=== PATIENT | female | born 1995 | race American Indian/Alaskan Native ===

== ENCOUNTER 2020-10-17 22:50 | Emergency (ER) | payer OTHER ==
[2020-10-18 04:42] VITALS: BP 114/74
[2020-10-18] MEDS ORDERED: PROCHLORPERAZINE EDISYLATE 10 MG/2 ML VIAL IV ONE (05:19)
[2020-10-18] MEDS ORDERED: SODIUM CHLORIDE 0.9% 1000 ML 1,000 ML IV ONE (05:19)
[2020-10-18] MEDS ORDERED: FAMOTIDINE 20 MG/2 ML INJ IV ONE (05:19)
[2020-10-18 05:50] LABS: Basophils # (Auto) 0.2 K/mm3 (0.0-0.1); Eosinophils # (Auto) 0.1 K/mm3 (0.0-0.4); Eosinophils % (Auto) 0.6 % (0.0-4.3); Monocytes # (Auto) 0.5 K/mm3 (0.0-0.8); Monocytes % (Auto) 5.1 % (0.0-7.3)
[2020-10-18 05:55] LABS: Basophils % (Auto) 0.3 % (0.0-1.8); Hematocrit 38.1 % (30.3-42.9); Hemoglobin 13.6 gm/dl (10.1-14.3); Lymphocytes # (Auto) 1.4 K/mm3 (1.2-5.4); Mean Corpuscular HGB Conc 36 % (30-34); Mean Corpuscular Volume 93 fl (79-97); Platelet Count 412 K/mm3 (140-440); Red Blood Count 4.12 M/mm3 (3.65-5.03)
--- NOTE | 2020-10-18 06:32 | Emergency Department Report ---
<FRANCO KAUFMAN - Last Filed: 10/18/20 07:01> ED N/V/D HPI - General Chief complaint: Weakness Stated complaint: WEAKNESS/EMESIS Source: patient, EMS Mode of arrival: Wheelchair Limitations: No Limitations - History of Present Illness Initial comments: Patient is a nulliparous 25-year-old -[place] female with past medical history of eating disorder and personality disorder who presents to the ED with complaint of acute onset persistent intractable nausea and vomiting and abdominal pain intermittently for the last 2 weeks with worsening generalized weakness and lack of appetite. Patient states that she has not been able to keep anything down especially in the last 2 days. Patient states that she is late on her menstrual cycle and suspect that she may be although she has not had any home tests performed. Patient denies fever, chills, diarrhea, chest pain, shortness of breath, dysuria, urinary frequency and urgency, vaginal bleeding, vaginal discharge, cough, nasal and sinus congestion, sore throat, headache, syncope or dizziness. MD complaint: nausea, vomiting, abdominal pain, other (Generalized weakness) -: Sudden, week(s) (2) Description of Vomiting: food contents, watery Associated Abdominal Pain: Yes (Diffuse) Location: diffuse Radiation: none Severity: moderate Pain Scale: 6 Quality: cramping, aching, sharp Consistency: intermittent Improves with: none Worsens with: eating, vomiting Context: other (Late on her menstrual cycle; suspects ) Associated Symptoms: denies other symptoms, myalgias, loss of appetite, malaise, nausea/vomiting, weakness. denies: chest pain, cough, diaphoresis, fever/chills, headaches, rash, dysuria, shortness of breath, syncope, other - Related Data Previous Rx's Medication Instructions Recorded Last Taken Type Metoclopramide [Reglan] 10 mg PO Q12H PRN #12 tab 10/18/[address] [place]/M-Cryst 100 mg PO Q12HR #14 capsule 10/18/20 Unknown Rx [Macrobid CAP] 21/Iron Fu/Folic Acid 1 each PO DAILY #30 tablet 10/18/20 Unknown Rx [ Complete Caplet] Allergies Allergy/AdvReac Type Severity Reaction Status Date / Time creatine Allergy Anaphylaxis Uncoded 10/18/20 01:11 ED Review of Systems Constitutional: malaise, weakness. denies: chills, fever Eyes: denies: eye pain, eye discharge, vision change ENT: denies: ear pain, throat pain Respiratory: denies: cough, shortness of breath, wheezing Cardiovascular: denies: chest pain, palpitations Endocrine: no symptoms reported Gastrointestinal: abdominal pain, nausea, vomiting. denies: diarrhea Genitourinary: denies: urgency, dysuria, discharge Musculoskeletal: denies: back pain, joint swelling, arthralgia Skin: denies: rash, lesions Neurological: denies: headache, weakness, paresthesias Psychiatric: denies: anxiety, depression Hematological/Lymphatic: denies: easy bleeding, easy bruising ED Past Medical Hx - Past Medical History Previous Medical History?: Yes Hx Psychiatric Treatment: Yes (borderline personality disorder) Additional medical history: IBS, eating disorder - Surgical History Past Surgical History?: No - Social History Smoking Status: Never Smoker Substance Use Type: None - Medications Home Medications: Home Medications Medication Instructions Recorded Confirmed Last Taken Type Metoclopramide [Reglan] 10 mg PO Q12H PRN #12 tab 10/18/[address] [place]/M-Cryst 100 mg PO Q12HR #14 capsule 10/18/20 Unknown Rx [Macrobid CAP] 21/Iron Fu/Folic Acid 1 each PO DAILY #30 tablet 10/18/20 Unknown Rx [ Complete Caplet] ED Physical Exam - General Limitations: No Limitations General appearance: alert, in no apparent distress - Head Head exam: Present: atraumatic, normocephalic, normal inspection - Eye Eye exam: Present: normal appearance, PERRL, EOMI Pupils: Present: normal accommodation - ENT ENT exam: Present: normal exam, normal orophraynx, mucous membranes moist, TM's normal bilaterally, normal external ear exam - Neck Neck exam: Present: normal inspection, full ROM - Respiratory Respiratory exam: Present: normal lung sounds bilaterally. Absent: respiratory distress, wheezes, rales, rhonchi, chest wall tenderness, accessory muscle use, decreased breath sounds, prolonged expiratory - Cardiovascular Cardiovascular Exam: Present: regular rate, normal rhythm, normal heart sounds. Absent: systolic murmur, diastolic murmur, rubs, gallop - GI/Abdominal GI/Abdominal exam: Present: soft, tenderness (Palpable mild diffuse abdominal tenderness), normal bowel sounds. Absent: guarding, rebound, hyperactive bowel sounds, hypoactive bowel sounds, organomegaly - Extremities Exam Extremities exam: Present: normal inspection, full ROM, normal capillary refill - Back Exam Back exam: Present: normal inspection, full ROM. Absent: tenderness, CVA tenderness (R), CVA tenderness (L), muscle spasm, paraspinal tenderness - Neurological Exam Neurological exam: Present: alert, oriented X3, CN II-XII intact, normal gait, reflexes normal - Psychiatric Psychiatric exam: Present: normal affect, normal mood - Skin Skin exam: Present: warm, dry, intact, normal color. Absent: rash ED Medical Decision Making - Lab Data Result diagrams: 10/18/20 05:36 10/18/20 Unknown - Medical Decision Making This is a nulliparous 25-year-old -[place] female with past medical history of eating disorder and personality disorder who presents to the ED with complaint of acute onset persistent intractable nausea and vomiting and abdominal pain intermittently for the last 2 weeks with worsening generalized weakness and lack of appetite. Patient states that she has not been able to keep anything down especially in the last 2 days. Patient states that she is late on her menstrual cycle and suspect that she may be although she has not had any home tests performed. In the ED, patient is alert and oriented x3 and is not in any distress. Labs were drawn and patient was treated for nausea and vomiting with antiemetics, also given antacids in the ED. Patient also received normal saline 1 L IV bolus x1. Patient had a PO challange and able to tolerate with no vomiting noticed. Patient was discharged home and advised to follow-up with her primary care physician for further evaluation in 2 to 3 days. Patient is advised return to the ED immediately if symptoms get worse. - Differential Diagnosis ; UTI; dehydration; GERD; gastritis; gastroenteritis; ovarian cyst ED Disposition Clinical Impression: Nausea and vomiting in , Acute urinary tract infection, Pelvic pain during , Positive blood test GERD (gastroesophageal reflux disease) Qualifiers: Esophagitis presence: esophagitis presence not specified Qualified Code(s): K21.9 - Gastro-esophageal reflux disease without esophagitis Disposition: - TO HOME OR SELFCARE Is pt being admited?: No Does the pt Need Aspirin: No Condition: Stable Instructions: Nausea and Vomiting, Adult, [id number], Care Additional Instructions: Follow-up with a [facility] doctor in 3-5 days or if symptoms worsen and continue return to emergency room as soon as possible. Prescriptions: Nitrofurantoin [place]/M-Cryst [Macrobid CAP] 100 mg PO Q12HR #14 capsule 21/Iron Fu/Folic Acid [ Complete Caplet] 1 each PO DAILY #30 tablet Metoclopramide [Reglan] 10 mg PO Q12H PRN #12 tab PRN Reason: Nausea Referrals: PRIMARY CARE, [Primary Care Provider] - 3-5 Days [facility] [Provider Group] - 3-5 Days [facility] [Provider Group] - 3-5 Days Forms: Work/School Release Form(ED) Time of Disposition: 07:01 <MORENITA SMITH - Last Filed: 10/18/20 08:22> ED Review of Systems ROS: Stated complaint: WEAKNESS/EMESIS Other details as noted in HPI ED Course Vital Signs 10/18/20 01:02 Temperature 98.0 F Pulse Rate 90 Respiratory 18 Rate Blood Pressure 114/74 O2 Sat by Pulse 100 Oximetry - Reevaluation(s) Reevaluation #1: 10/18/20 07:25 Patient signed out to me by Franco Kaufman for pending test results. Patient has a positive test. I will order a ultrasound OB. Upon exam, currently does not have any abdominal tenderness but stated it is more in the pelvic area that has pressure intermittently. Patient currently denies any nausea or vomiting since treatment in the ER. Patient is stable with no acute signs of distress at this time. ED Medical Decision Making - Lab Data Result diagrams: 10/18/20 05:36 10/18/20 Unknown Lab Results 10/18/20 10/18/20 10/18/20 Range/Units 05:36 Unknown Unknown WBC 9.5 (4.5-11.0) K/mm3 RBC 4.12 (3.65-5.03) M/mm3 Hgb 13.6 (10.1-14.3) gm/dl Hct 38.1 (30.3-42.9) % MCV 93 (79-97) fl MCH 33 H (28-32) pg MCHC 36 H (30-34) % RDW 13.0 L (13.2-15.2) % Plt Count 412 (140-440) K/mm3 Lymph % (Auto) 15.0 (13.4-35.0) % [place] % (Auto) 5.1 (0.0-7.3) % Eos % (Auto) 0.6 (0.0-4.3) % Baso % (Auto) 0.3 (0.0-1.8) % Lymph # (Auto) 1.4 (1.2-5.4) K/mm3 [place] # (Auto) 0.5 (0.0-0.8) K/mm3 Eos # (Auto) 0.1 (0.0-0.4) K/mm3 Baso # (Auto) 0.2 H (0.0-0.1) K/mm3 Seg Neutrophils % 81.3 H (40.0-70.0) % Seg Neutrophils # 7.6 (1.8-7.7) K/mm3 Sodium 135 L (137-145) mmol/L Potassium 3.9 (3.6-5.0) mmol/L Chloride 100.1 (98-107) mmol/L Carbon Dioxide 18 L (22-30) mmol/L Anion Gap 21 mmol/L BUN 12 (7-17) mg/dL Creatinine 0.4 L (0.6-1.2) mg/dL Estimated GFR > 60 ml/min BUN/Creatinine Ratio 30 % Glucose 71 (65-100) mg/dL Calcium 8.6 (8.4-10.2) mg/dL Total Bilirubin 0.60 (0.1-1.2) mg/dL AST 15 (5-40) units/L ALT 6 L (7-56) units/L Alkaline Phosphatase 55 (35-129) units/L Total Protein 6.5 (6.3-8.2) g/dL Albumin 4.3 (3.9-5) g/dL Albumin/Globulin Ratio 2.0 % HCG, Quant (0-4) mIU/mL Urine Color Yellow (Yellow) Urine Turbidity Slightly-cloudy (Clear) Urine pH 6.0 (5.0-7.0) Ur Specific [place] 1.032 H (1.003-1.030) Urine Protein 100 mg/dl (Negative) mg/dL Urine Glucose (UA) 50 (Negative) mg/dL Urine Ketones 80 (Negative) mg/dL Urine Blood Neg (Negative) Urine Nitrite Neg (Negative) Urine Bilirubin Neg (Negative) Urine Urobilinogen < 2.0 (<2.0) mg/dL Ur Leukocyte Esterase Tr (Negative) Urine WBC (Auto) 18.0 H (0.0-6.0) /HPF Urine RBC (Auto) 1.0 (0.0-6.0) /HPF U Epithel Cells (Auto) 4.0 (0-13.0) /HPF Urine Bacteria (Auto) 1+ (Negative) /HPF Urine Mucus 3+ /HPF 10/18/20 Range/Units Unknown WBC (4.5-11.0) K/mm3 RBC (3.65-5.03) M/mm3 Hgb (10.1-14.3) gm/dl Hct (30.3-42.9) % MCV (79-97) fl MCH (28-32) pg MCHC (30-34) % RDW (13.2-15.2) % Plt Count (140-440) K/mm3 Lymph % (Auto) (13.4-35.0) % [place] % (Auto) (0.0-7.3) % Eos % (Auto) (0.0-4.3) % Baso % (Auto) (0.0-1.8) % Lymph # (Auto) (1.2-5.4) K/mm3 [place] # (Auto) (0.0-0.8) K/mm3 Eos # (Auto) (0.0-0.4) K/mm3 Baso # (Auto) (0.0-0.1) K/mm3 Seg Neutrophils % (40.0-70.0) % Seg Neutrophils # (1.8-7.7) K/mm3 Sodium (137-145) mmol/L Potassium (3.6-5.0) mmol/L Chloride (98-107) mmol/L Carbon Dioxide (22-30) mmol/L Anion Gap mmol/L BUN (7-17) mg/dL Creatinine (0.6-1.2) mg/dL Estimated GFR ml/min BUN/Creatinine Ratio % Glucose (65-100) mg/dL Calcium (8.4-10.2) mg/dL Total Bilirubin (0.1-1.2) mg/dL AST (5-40) units/L ALT (7-56) units/L Alkaline Phosphatase (35-129) units/L Total Protein (6.3-8.2) g/dL Albumin (3.9-5) g/dL Albumin/Globulin Ratio % HCG, Quant 09535 H (0-4) mIU/mL Urine Color (Yellow) Urine Turbidity (Clear) Urine pH (5.0-7.0) Ur Specific [place] (1.003-1.030) Urine Protein (Negative) mg/dL Urine Glucose (UA) (Negative) mg/dL Urine Ketones (Negative) mg/dL Urine Blood (Negative) Urine Nitrite (Negative) Urine Bilirubin (Negative) Urine Urobilinogen (<2.0) mg/dL Ur Leukocyte Esterase (Negative) Urine WBC (Auto) (0.0-6.0) /HPF Urine RBC (Auto) (0.0-6.0) /HPF U Epithel Cells (Auto) (0-13.0) /HPF Urine Bacteria (Auto) (Negative) /HPF Urine Mucus /HPF - Radiology Data [facility] [address] [place] [address] Ultrasound Report Signed Patient: PAM UNDERWOOD MR#: [id number] : 1995 Acct:[id number] Age/Sex: 24 / F ADM Date: 10/17/20 Loc: ED A ttending Dr: Ordering Physician: MORENITA SMITH NP Date of Service: 10/18/20 Procedure(s): US OB <= 14 weeks fetus Accession Number(s): [id number] cc: MORENITA SMITH NP [facility]IME[facility] OBSTETRIC ULTRASOUND HISTORY: Pelvic pain, hyperemesis for 2 weeks, whole body aches COMPARISON: None. TECHNIQUE: Routine transabdominal OB ultrasound performed. FINDINGS: Uterus: Normal size measuring 7.8 x 5.5 x 5.2 cm. Gestational Sac: Well-defined oval shape and intrauterine in location. Yolk Sac: Normal in appearance. Fetus/Embryo: [place]-rump length of 0.9 cm, corresponding to an estimated gestational age of 6 weeks 6 days. Embryonic/ anatomy is too small for evaluation. Embryonic/ cardiac activity: 144bpm Placenta: Too small for evaluation. Amniotic fluid volume: Subjectively appropriate for gestational age. Ovaries: The right ovary is normal in size and appearance with normal blood flow, measuring 2.2 x 1.7 x 1.6 cm. The left ovary is normal in size and appearance with normal blood flow, measuring 2.7 x 1.4 x 1.2 cm. Additional findings: A moderate subchorionic hemorrhage is identified along the superior border of the gestational sac measuring 2.4 x 1.0 cm on sagittal imaging. IMPRESSION Viable single intrauterine as described. Moderate subchorionic hemorrhage. Signer Name: Tevin Scruggs Jr, MD Signed: 10/18/2020 8:10 AM Workstation Name: [id number] Transcribed By: GRETA Hebert ictated By: TEIVN SCRUGGS JR, MD Electronically Authenticated By: TEVIN SCRUGGS JR, MD Signed Date/Time: 10/18/20809 DD/ 7 TD/TT: - Medical Decision Making This is a 24-year-old female that was originally seen by Franco Kaufman and signed out to me for pending results. Patient is . I reviewed the labs and ultrasound and patient is notified of the results with no questions noted by the patient. Patient did have a p.o. challenge which patient tolerated with no nausea vomiting. I will discharge patient with Macrobid, Reglan and vitamins. Patient denied any having any vaginal bleeding. Patient was instructed to follow-up with a [facility] doctor in 3-5 days or if symptoms worsen and continue return to emergency room as soon as possible. At time of discharge, the patient does not seem toxic or ill in appearance. No acute signs of distress noted. Patient agrees to discharge treatment plan of care. No further questions noted by the patient. Critical care attestation.: If time is entered above; I have spent that time in minutes in the direct care of this critically ill patient, excluding procedure time. ED Disposition Time of Disposition: 08:22
[2020-10-18 06:48] LABS: Alanine Aminotransferase 6 units/L (7-56); Albumin 4.3 g/dL (3.9-5); Bacteria,Urine 1+ /HPF (Negative); Bilirubin,Urine NEG (Negative); Blood Urea Nitrogen 12 mg/dL (7-17); Blood,Urine NEG (Negative); Calcium 8.6 mg/dL (8.4-10.2); Color,Urine Yellow (Yellow); Hemolysis Index 22; Mucus,Urine 3+ /HPF; Urobilinogen,Urine < 2.0 mg/dL (<2.0)
[2020-10-18 06:55] LABS: BUN/Creatinine Ratio 30
--- NOTE | 2020-10-18 08:15 | Ultrasound Report ---
FIRSTTRIME[facility] OBSTETRIC ULTRASOUND HISTORY: Pelvic pain, hyperemesis for 2 weeks, whole body aches COMPARISON: None. TECHNIQUE: Routine transabdominal OB ultrasound performed. FINDINGS: Uterus: Normal size measuring 7.8 x 5.5 x 5.2 cm. Gestational Sac: Well-defined oval shape and intrauterine in location. Yolk Sac: Normal in appearance. Fetus/Embryo: [place]-rump length of 0.9 cm, corresponding to an estimated gestational age of 6 weeks 6 days. Embryonic/ anatomy is too small for evaluation. Embryonic/ cardiac activity: 144bpm Placenta: Too small for evaluation. Amniotic fluid volume: Subjectively appropriate for gestational age. Ovaries: The right ovary is normal in size and appearance with normal blood flow, measuring 2.2 x 1. 7 x 1.6 cm. The left ovary is normal in size and appearance with normal blood flow, measuring 2.7 x 1.4 x 1.2 cm. Additional findings: A moderate subchorionic hemorrhage is identified along the superior border of th e gestational sac measuring 2.4 x 1.0 cm on sagittal imaging. IMPRESSION Viable single intrauterine as described. Moderate subchorionic hemorrhage. Signer Name: Tevin Scruggs Jr, MD Signed: 10/18/2020 8:10 AM Workstation Name: [id number]
== END 2020-10-18 08:45 | disposition home or self-care (01) ==
LOC: ED 22:50
DX: O21.9 Vomiting of pregnancy, unspecified (principal); O23.41 Unspecified infection of urinary tract in pregnancy, first trimester; O26.891 Other specified pregnancy related conditions, first trimester; K21.9 Gastro-esophageal reflux disease without esophagitis; Z79.899 Other long term (current) drug therapy; Z3A.01 Less than 8 weeks gestation of pregnancy
CPT/HCPCS: 36415; 76801; 80053; 81001; 84702; 85025; 87086; 96361; 96374; 96375; 99284; J0780; J7030

== ENCOUNTER 2021-05-23 11:35 | Emergency (ER) | payer OTHER ==
[2021-05-23 12:43] VITALS: BP 102/79
--- NOTE | 2021-05-23 14:01 | Emergency Department Report ---
ED Female HPI - General Chief complaint: Abdominal Pain Stated complaint: N/V BODYACHES Source: patient Mode of arrival: Ambulatory Limitations: No Limitations - History of Present Illness Initial comments: 25-year-old -[place] female who has a history of schizophrenia and anorexia nervosa. Patient states she is currently not being treated for those 2 diagnoses. Patient at this time denies any thoughts of harming herself or harming anyone else. Patient comes in complaining of urinary frequency and urgency and pelvic discomfort. Patient denies any vaginal bleeding. Her last menstrual period was 04/29/2021. She states that she had a urinary tract infection about a month ago and only missed 2 pills. Patient states that she is full care. She has an allergy to creatine, Wellbutrin and Risperdal. MD Complaint: pelvic pain Onset/Timin -: days(s) Location: suprapubic Radiation: non-radiating Severity scale (0 -10): 3 Quality: sharp Consistency: now resolved Improves with: none Worsens with: none Are you Now?: No Last Menstrual Period: 04/29/21 EDC: 02/03/22 Associated Symptoms: nausea/vomiting, dysuria. denies: fever/chills - Related Data Previous Rx's Medication Instructions Recorded Last Taken Type 21/Iron Fu/Folic Acid 1 each PO DAILY #30 tablet 10/18/20 Unknown Rx [ Complete Caplet] Metoclopramide [Reglan TAB] 10 mg PO Q12H PRN #12 tab 05/23/21 Unknown Rx Nitrofurantoin [place]/M-Cryst 100 mg PO Q12HR #14 capsule 05/23/21 Unknown Rx [Macrobid CAP] Allergies Allergy/AdvReac Type Severity Reaction Status Date / Time creatine Allergy Anaphylaxis Uncoded 05/23/21 12:44 ED Review of Systems ROS: Stated complaint: N/V BODYACHES Other details as noted in HPI Comment: All other systems reviewed and negative ED Past Medical Hx - Past Medical History Hx Psychiatric Treatment: Yes (borderline personality disorder) Additional medical history: IBS, eating disorder - Social History Smoking Status: Never Smoker Substance Use Type: None - Medications Home Medications: Home Medications Medication Instructions Recorded Confirmed Last Taken Type 21/Iron Fu/Folic Acid 1 each PO DAILY #30 tablet 10/18/20 Unknown Rx [ Complete Caplet] Metoclopramide [Reglan TAB] 10 mg PO Q12H PRN #12 tab 05/23/21 Unknown Rx Nitrofurantoin [place]/M-Cryst 100 mg PO Q12HR #14 capsule 05/23/21 Unknown Rx [Macrobid CAP] ED Physical Exam - General Limitations: No Limitations General appearance: alert, in no apparent distress - Head Head exam: Present: atraumatic, normocephalic - Eye Eye exam: Present: normal appearance - ENT ENT exam: Present: mucous membranes moist - Neck Neck exam: Present: normal inspection - Respiratory Respiratory exam: Present: normal lung sounds bilaterally. Absent: respiratory distress - Cardiovascular Cardiovascular Exam: Present: regular rate, normal rhythm. Absent: systolic murmur, diastolic murmur, rubs, gallop - GI/Abdominal GI/Abdominal exam: Present: soft, normal bowel sounds. Absent: distended, tenderness, guarding - Rectal Rectal exam: Present: deferred - Extremities Exam Extremities exam: Present: normal inspection - Back Exam Back exam: Present: normal inspection - Neurological Exam Neurological exam: Present: alert, oriented X3, normal gait - Psychiatric Psychiatric exam: Present: normal affect, normal mood, other (Pressured speech). Absent: homicidal ideation, suicidal ideation - Skin Skin exam: Present: warm, dry, intact, normal color. Absent: rash ED Course Vital Signs 05/23/21 12:42 Temperature 98.5 F Pulse Rate 82 Respiratory 14 Rate Blood Pressure 102/79 [Right] O2 Sat by Pulse 100 Oximetry ED Medical Decision Making - Medical Decision Making 25-year-old -[place] female who has a history of schizophrenia and anorexia nervosa. Patient states she is currently not being treated for those 2 diagnoses. Patient at this time denies any thoughts of harming herself or harming anyone else. Patient comes in complaining of urinary frequency and urgency and pelvic discomfort. Patient denies any vaginal bleeding. Her last menstrual period was 04/29/2021. She states that she had a urinary tract infection about a month ago and only missed 2 pills. Patient states that she is full care. She has an allergy to creatine, Wellbutrin and Risperdal. Urinalysis and urine test was ordered. Critical care attestation.: If time is entered above; I have spent that time in minutes in the direct care of this critically ill patient, excluding procedure time. ED Disposition Clinical Impression: UTI (urinary tract infection) Qualifiers: Urinary tract infection type: site unspecified Hematuria presence: without hematuria Qualified Code(s): N39.0 - Urinary tract infection, site not specified Disposition: 01 HOME / SELF CARE / HOMELESS Is pt being admited?: No Does the pt Need Aspirin: No Condition: Stable Instructions: Abdominal Pain (ED), Urinary Tract Infection, Adult, [id number] Additional Instructions: Complete antibiotics as prescribed. Increase your water intake advance your diet as tolerated. Follow-up with your primary care provider or [facility] provider. Prescriptions: Nitrofurantoin [place]/M-Cryst [Macrobid CAP] 100 mg PO Q12HR #14 capsule Metoclopramide [Reglan TAB] 10 mg PO Q12H PRN #12 tab PRN Reason: Nausea Referrals: [facility] [Outside] - 3-5 Days [facility] [Outside] - 3-5 Days [facility] [Outside] - 3-5 Days Time of Disposition: 15:28
[2021-05-23 14:38] LABS: HCG Qualitative,Urine Negative (Negative)
[2021-05-23 14:44] LABS: Bilirubin,Urine NEG (Negative); Blood,Urine NEG (Negative); Color,Urine Yellow (Yellow); Mucus,Urine 3+ /HPF; Urobilinogen,Urine < 2.0 mg/dL (<2.0)
== END 2021-05-23 18:00 | disposition home or self-care (01) ==
LOC: ED 11:35
DX: N39.0 Urinary tract infection, site not specified (principal); Z87.892 Personal history of anaphylaxis
CPT/HCPCS: 81001; 81025; 87086; 99283